=== PATIENT | female | born 2000 | race African-American/Black ===

== ENCOUNTER 2022-01-19 16:07 | Emergency (ER) | payer BC, OTHER | END 2022-01-19 17:10 | disposition home or self-care (01) | LOC: CSHERS 16:07 | DX: R42 Dizziness and giddiness (principal); R11.2 Nausea with vomiting, unspecified; Z20.822 Contact with and (suspected) exposure to COVID-19; Z87.891 Personal history of nicotine dependence | CPT/HCPCS: 99284; U0003; U0005 ==

== ENCOUNTER 2022-09-26 14:10 | Emergency (ER) | payer OTHER | END 2022-09-26 15:50 | disposition home or self-care (01) | LOC: CSHERS 14:10 | DX: M62.838 Other muscle spasm (principal); V89.2XXA Person injured in unspecified motor-vehicle accident, traffic, initial encounter; Z87.891 Personal history of nicotine dependence | CPT/HCPCS: 70450 ==

== ENCOUNTER 2023-12-28 16:42 | Emergency (ER) | payer OTHER | END 2023-12-28 18:15 | disposition home or self-care (01) | LOC: CSHERS 16:42 | DX: J02.9 Acute pharyngitis, unspecified (principal); J06.9 Acute upper respiratory infection, unspecified; Z87.891 Personal history of nicotine dependence | CPT/HCPCS: 87081; 87430; 99283 ==

== ENCOUNTER 2024-05-06 15:54 | Emergency (ER) | payer OTHER ==
[2024-05-06 17:12] LABS: #Basophils 0.01 10x3/uL (0.0-0.2); #Eosinophils 0.01 10x3/uL (0.0-0.5); #Monocytes 0.42 10x3/uL (0.0-1.1); #Neutrophils 3.29 10x3/uL (1.5-8.4); %Basophils 0.2 % (0.0-2.0); %Eosinophils 0.2 % (0.0-6.0); %Lymphocytes 25.9 % (18.0-47.0); %Monocytes 8.3 % (0.0-10.0); Hematocrit 39.4 % (34.9-44.5); Hemoglobin 13.2 g/dL (12.0-15.5); Mean Corpuscular HGB CONC 33.5 g/dL (32.0-36.0); Mean Corpuscular Hemoglobin 28.6 pg (27.0-33.0); Mean Corpuscular Volume 85.5 fL (81.6-98.3); Mean Platelet Volume 12.7 fL (7.4-10.4); Platelet Count 157 10x3/uL (150-450); RBC Distribution Width 12.3 % (11.5-14.5); Red Blood Cell (RBC) Count 4.61 10x6/uL (3.90-5.03); White Blood Cell (WBC) Count 5.1 10x3/uL (3.5-10.5)
[2024-05-06 17:26] LABS: ALT (SGPT) 16 U/L (8-55); AST (SGOT) 17 U/L (5-34); Albumin 3.6 g/dL (3.5-5.0); Alkaline Phosphatase 51 U/L (40-110); Anion Gap 14 mmol/L (10-20); BUN (Urea Nitrogen) 12 mg/dL (7.0-18.7); Calc. Creatinine Clearance 0 mL/min (70-130); Calcium 8.9 mg/dL (7.8-10.44); Carbon Dioxide 24 mmol/L (22-29); Chloride 104 mmol/L (98-107); Estimated GFR 83; Globulin 3.8 g/dL (2.4-3.5); Glucose 100 mg/dL (70-105); Lipase 38 U/L (8-78); Potassium 3.4 mmol/L (3.5-5.1); Protein, Total 7.4 g/dL (6.0-8.3); Sodium 139 mmol/L (136-145)
== END 2024-05-06 17:56 | disposition left against medical advice (07) ==
LOC: CSHERS 15:54
DX: Z53.21 Procedure and treatment not carried out due to patient leaving prior to being seen by health care provider (principal)
CPT/HCPCS: 36415; 80053; 83690; 85025; 87428

== ENCOUNTER 2024-05-08 10:53 | Emergency (ER) | payer OTHER ==
[2024-05-08] MEDS ORDERED: diphenhydrAMINE 25 MG CAP ONE (11:18)
[2024-05-08] MEDS ORDERED: Dexamethasone 4 MG TAB ONE (12:22)
== END 2024-05-08 12:38 | disposition home or self-care (01) ==
LOC: CSHERS 10:53
DX: L50.9 Urticaria, unspecified (principal); Z87.891 Personal history of nicotine dependence
CPT/HCPCS: 99282; J8540